=== PATIENT | female | born 1985 | race Caucasian/White ===

== ENCOUNTER 2016-06-28 10:05 | Emergency (ER) | payer OTHER ==
[~2016-06-28] VITALS: Ht 144.7 cm; Wt 63.5 kg
[~2016-06-28 10:05] MED LIST: 'PARAFON FORTE500 M1 PO; AMOXICILLIN500 MG PO; AMOXIL500 MG PO; AUGMENTIN 875875 MG PO; BENADRYL12.5 MG/5 PO; CELEXA20 MG PO; CIPRO250 MG PO; CIPROFLOXACIN500 MG PO; CITALOPRAM HYDR20 MG PO; CLARITIN10 MG PO; CLINDAMYCIN150 MG PO; COMPAZINE10 MG PO; DONNATAL1 TAB PO; EFFEXOR75 MG PO; FLEXERIL10 MG PO; FLEXERIL5 MG PO; HYDROCODONE BIT1 T11 PO; IBU800 MG PO; KEFLEX500 MG PO; KENALOG0.1% TP; KETOPROFEN75 MG PO; LAMICTAL25 MG PO; LOMOTIL 0.025 M1 TA1 PO; MACROBID100 M1 PO; MOTRIN800 MG PO; NAPROSYN500 MG PO; NORCO 325 MG-51 TAB PO; PHENERGAN25 M1 PO; PHENERGAN25 MG RC; PREDNICOT20 MG PO; PREDNISONE20 MG PO; PRILOSEC20 MG PO; RISPERDAL1 MG PO; ROBITUSSIN AC 110 ML PO; SEROQUEL50 MG PO; SYMBICORT 10.10.2 M1 IH; SYMBICORT1 AE1 INH; TRAMADOL HCL50 MG PO; TRAZODONE HCL50 MG PO; VENTOLIN H0.09 MG/AC INH; VENTOLIN0.09 MG/AC IH; VIBRAMYCIN100 MG PO; VICODIN 5/500 505 MG PO; VITAMIN D50000 IU PO; VOLTAREN50 M1 PO; ZITHROMAX Z PA250 MG PO; ZOFRAN ODT4 MG SL; ZOFRAN4 MG PO
[2016-06-28 10:16] VITALS: BP 150/90
[2016-06-28] MEDS ORDERED: NAPROSYN500 MG PO (10:19)
[2016-06-28] MEDS ORDERED: ANTIBIOTIC O500 U/GM T (10:23)
[2016-06-28] MEDS ORDERED: KEFLEX500 M1 PO (10:23)
[2016-07-26] MEDS ORDERED: D-1000 185 MG-11 TAB PO (15:36)
== END 2016-06-28 12:00 | disposition home or self-care (01) ==
LOC: ED 10:05
DX: S60.221A Contusion of right hand, initial encounter (principal); R03.0 Elevated blood-pressure reading, without diagnosis of hypertension; F32.9 Major depressive disorder, single episode, unspecified; Z91.041 Radiographic dye allergy status; Z79.899 Other long term (current) drug therapy; W22.8XXA Striking against or struck by other objects, initial encounter; Y93.89 Activity, other specified; Y92.9 Unspecified place or not applicable; Y99.9 Unspecified external cause status